=== PATIENT | male | born 1985 | race Caucasian/White ===

== ENCOUNTER 2017-02-22 21:45 | Emergency (ER) | payer MEDICAID ==
[~2017-02-22] VITALS: Ht 165.1 cm; Wt 89.0 kg
[2017-02-23 05:30] VITALS: BP 125/75
== END 2017-02-23 06:56 | disposition home or self-care (01) ==
LOC: ER 21:45
DX: R07.9 Chest pain, unspecified (principal); E78.5 Hyperlipidemia, unspecified
CPT/HCPCS: 36415; 84484; 99285; Z7610